=== PATIENT | female | born 1985 | race African-American/Black ===

== ENCOUNTER 2017-03-25 07:49 | Emergency (ER) | payer SELFPAY ==
[~2017-03-25] VITALS: Ht 160 cm; Wt 55.0 kg
[2017-03-25 07:57] VITALS: BP 136/100; PULSE 92; RESP 20; TEMP 98.1; O2SAT 98
[2017-03-25 08:11] VITALS: BP 165/96; PULSE 96; RESP 18; TEMP 98.6; O2SAT 100
[2017-03-25 08:42] VITALS: BP 189/85; PULSE 106; RESP 19; TEMP 98; O2SAT 100
[2017-03-25] MEDS ORDERED: SODIUM CHLOR 0.9% 1000 ML INJ 1,000 ML IV ONE (08:45)
--- NOTE | 2017-03-25 08:48 | PD ---
HPI Chief Complaint: Anxiety Time Seen by Provider: 08:43 Travel History International Travel<30 days: No Contact w/Intl Traveler<30days: No Traveled to known affect area: No History of Present Illness HPI Patient is a 31-year-old female who presents to emergency room for evaluation of anxiety reaction. Patient reports that she lost her job on Wednesday, and since then, she has been having palpitations. Reports "I am stressed and don't know what to do because I don't have a job now." Patient denies suicidal or homicidal ideations at this time. Denies any drug abuse. Patient requesting medication for her anxiety. Denies chest pain/sob. PFSH Past Medical History Medical History: Denies Significant Hx Tetanus Vaccination: > 5 Years Influenza Vaccination: No ?: Not LMP: now Past Surgical History Surgical History: No Previous Surgery Social History Alcohol Use: Yes Tobacco Use: No Substance Use: No Allergies-Medications (Allergen,Severity, Reaction): Coded Allergies: Motrin (Verified Allergy, Intermediate, HIVES, 03/25/17) Reported Meds & Prescriptions Reported Meds & Active Scripts Active No Active Prescriptions or Reported Medications Review of Systems General / Constitutional: No: Fever Eyes: No: Visual changes HENT: No: Headaches Cardiovascular: No: Chest Pain or Discomfort Respiratory: No: Shortness of Breath Gastrointestinal: No: Abdominal Pain Genitourinary: No: Dysuria Musculoskeletal: No: Pain Skin: No Rash Neurologic: No: Weakness Psychiatric: Positive: Anxiety, No: Depression, Suicidal Ideations, Homicidal Ideation Endocrine: No: Polydipsia Hematologic/Lymphatic: No: Easy Bruising Physical Exam Narrative GENERAL: mild distress SKIN: Focused skin assessment warm/dry. HEAD: Atraumatic. Normocephalic. EYES: Pupils equal and round. No scleral icterus. No injection or drainage. ENT: No nasal bleeding or discharge. Mucous membranes pink and moist. NECK: Trachea midline. No JVD. CARDIOVASCULAR: Regular rate and rhythm. No murmur appreciated. RESPIRATORY: No accessory muscle use. Clear to auscultation. Breath sounds equal bilaterally. GASTROINTESTINAL: Abdomen soft, non-tender, nondistended. Hepatic and splenic margins not palpable. MUSCULOSKELETAL: No obvious deformities. No clubbing. No cyanosis. No edema. NEUROLOGICAL: Awake and alert. No obvious cranial nerve deficits. Motor grossly within normal limits. Normal speech. PSYCHIATRIC: Anxious affect, denies si/hi Data Data Last Documented VS Vital Signs Date Time Temp Pulse Resp B/P Pulse Ox O2 Delivery O2 Flow Rate FiO2 03/25/17 08:42 98.0 106 19 189/85 100 Room Air Orders Complete Blood Count With Diff (03/25/17 08:43) Comprehensive Metabolic Panel (03/25/17 08:43) Thyroid Stimulating Hormone (03/25/17 08:43) Iv Access Insert/Monitor (03/25/17 08:43) Ecg Monitoring (03/25/17 08:43) Lorazepam Inj (Ativan Inj) (03/25/17 08:45) Drug Screen, Random Urine (03/25/17 08:43) Ed Urine Pregnancytest Poc (03/25/17 08:43) Sodium Chlor 0.9% 1000 Ml Inj (Ns 1000 M (03/25/17 08:45) Potassium Chloride (Kcl) (03/25/17 10:00) Labs Laboratory Tests Test 03/25/17 09:00 White Blood Count 6.6 TH/MM3 Red Blood Count 3.87 MIL/MM3 Hemoglobin 12.8 GM/DL Hematocrit 36.7 % Mean Corpuscular Volume 94.8 FL Mean Corpuscular Hemoglobin 33.0 PG Mean Corpuscular Hemoglobin 34.9 % Concent Red Cell Distribution Width 15.8 % Platelet Count 305 TH/MM3 Mean Platelet Volume 8.1 FL Neutrophils (%) (Auto) 67.5 % Lymphocytes (%) (Auto) 22.6 % Monocytes (%) (Auto) 8.9 % Eosinophils (%) (Auto) 0.1 % Basophils (%) (Auto) 0.9 % Neutrophils # (Auto) 4.5 TH/MM3 Lymphocytes # (Auto) 1.5 TH/MM3 Monocytes # (Auto) 0.6 TH/MM3 Eosinophils # (Auto) 0.0 TH/MM3 Basophils # (Auto) 0.1 TH/MM3 CBC Comment DIFF FINAL Differential Comment Sodium Level 132 MEQ/L Potassium Level 3.1 MEQ/L Chloride Level 97 MEQ/L Carbon Dioxide Level 23.8 MEQ/L Anion Gap 11 MEQ/L Blood Urea Nitrogen 12 MG/DL Creatinine 0.82 MG/DL Estimat Glomerular Filtration 100 ML/MIN Rate Random Glucose 101 MG/DL Calcium Level 8.9 MG/DL Total Bilirubin 0.8 MG/DL Aspartate Amino Transf 37 U/L (AST/SGOT) Alanine Aminotransferase 33 U/L (ALT/SGPT) Alkaline Phosphatase 60 U/L Total Protein 8.4 GM/DL Albumin 4.1 GM/DL Thyroid Stimulating Hormone 1.360 uIU/ML [address] [place] [address] Medical Decision Making Medical Screen Exam Complete: Yes Emergency Medical Condition: Yes Interpretation(s) Vital Signs Date Time Temp Pulse Resp B/P Pulse Ox O2 Delivery O2 Flow Rate FiO2 03/25/17 08:42 98.0 106 19 189/85 100 Room Air 03/25/17 08:42 106 19 03/25/17 08:11 98.6 96 18 165/96 100 Room Air 03/25/17 08:08 99 18 03/25/17 07:57 98.1 92 20 136/100 98 Differential Diagnosis Differential includes depression, anxiety reaction, hyperthyroidism Narrative Course 31-year-old female who presents to emergency with complaints of anxiety reaction. Patient reports that she lost her job and Wednesday, reports that she has been having anxiety attack since then. Patient requesting medication for anxiety. Patient anxious, does not want ativan. Basic labs ordered. Denies si/hi. Does not want to see psych screener Laboratory Tests Test 03/25/17 09:00 White Blood Count 6.6 TH/MM3 (4.0-11.0) Red Blood Count 3.87 MIL/MM3 (4.00-5.30) Hemoglobin 12.8 GM/DL (11.6-15.3) Hematocrit 36.7 % (35.0-46.0) Mean Corpuscular Volume 94.8 FL (80.0-100.0) Mean Corpuscular Hemoglobin 33.0 PG (27.0-34.0) Mean Corpuscular Hemoglobin 34.9 % Concent (32.0-36.0) Red Cell Distribution Width 15.8 % (11.6-17.2) Platelet Count 305 TH/MM3 (150-450) Mean Platelet Volume 8.1 FL (7.0-11.0) Neutrophils (%) (Auto) 67.5 % (16.0-70.0) Lymphocytes (%) (Auto) 22.6 % (9.0-44.0) Monocytes (%) (Auto) 8.9 % (0.0-8.0) Eosinophils (%) (Auto) 0.1 % (0.0-4.0) Basophils (%) (Auto) 0.9 % (0.0-2.0) Neutrophils # (Auto) 4.5 TH/MM3 (1.8-7.7) Lymphocytes # (Auto) 1.5 TH/MM3 (1.0-4.8) Monocytes # (Auto) 0.6 TH/MM3 (0-0.9) Eosinophils # (Auto) 0.0 TH/MM3 (0-0.4) Basophils # (Auto) 0.1 TH/MM3 (0-0.2) CBC Comment DIFF FINAL Differential Comment Sodium Level 132 MEQ/L (136-145) Potassium Level 3.1 MEQ/L (3.5-5.1) Chloride Level 97 MEQ/L (98-107) Carbon Dioxide Level 23.8 MEQ/L (21.0-32.0) Anion Gap 11 MEQ/L (5-15) Blood Urea Nitrogen 12 MG/DL (7-18) Creatinine 0.82 MG/DL (0.50-1.00) Estimat Glomerular Filtration 100 ML/MIN Rate (>89) Random Glucose 101 MG/DL (74-106) Calcium Level 8.9 MG/DL (8.5-10.1) Total Bilirubin 0.8 MG/DL (0.2-1.0) Aspartate Amino Transf 37 U/L (15-37) (AST/SGOT) Alanine Aminotransferase 33 U/L (10-53) (ALT/SGPT) Alkaline Phosphatase 60 U/L (45-117) Total Protein 8.4 GM/DL (6.4-8.2) Albumin 4.1 GM/DL (3.4-5.0) Thyroid Stimulating Hormone 1.360 uIU/ML 3rd Gen (0.358-3.740) Patient was reevaluated, patient is feeling much better at this time, patient reports improvement on her anxiety. Patient denies suicidal or homicidal ideations. Patient will follow-up with the primary care doctor and will return to emergency room as needed. I did review all labs and all studies with patient in detail including all findings. Diagnosis Primary Impression: Anxiety Additional Impression: Hypokalemia Patient Instructions: General Instructions Additional Instructions: Please follow up with your primary care doctor Return to ER as needed or if symptoms worsen or persist. Scripts No Active Prescriptions or Reported Meds Disposition: 01 DISCHARGE HOME Condition: Stable Charlotte Avalos DO Mar 25, 2017 08:48
[2017-03-25] MEDS: LORazepam 2 MG/ML VIAL IV ONE ×2 (09:04→09:44)
[2017-03-25 09:17] LABS: AUTOMATED NEUTROPHIL # 4.5 TH/MM3 (1.8-7.7); BASOPHIL # 0.1 TH/MM3 (0-0.2); BASOPHIL % 0.9 % (0.0-2.0); EOSINOPHIL % 0.1 % (0.0-4.0); HEMATOCRIT 36.7 % (35.0-46.0); LYMPH % 22.6 % (9.0-44.0); LYMPHOCYTE # 1.5 TH/MM3 (1.0-4.8); MEAN CELL VOLUME 94.8 FL (80.0-100.0); MEAN CORPUSCULAR HGB CONC 34.9 % (32.0-36.0); MONO % 8.9 % (0.0-8.0); NEUT % 67.5 % (16.0-70.0); PLATELET COUNT 305 TH/MM3 (150-450); RED BLOOD COUNT 3.87 MIL/MM3 (4.00-5.30); RED CELL DISTRIBUTION WIDTH 15.8 % (11.6-17.2); WHITE BLOOD COUNT 6.6 TH/MM3 (4.0-11.0)
[2017-03-25 09:18] LABS: HEMO FLAGS DIFF FINAL
[2017-03-25 09:37] LABS: ALT (GPT) 33 U/L (10-53)
[2017-03-25 09:42] LABS: ANION GAP 11 MEQ/L (5-15); AST (GOT) 37 U/L (15-37); BICARBONATE 23.8 MEQ/L (21.0-32.0); BLOOD UREA NITROGEN 12 MG/DL (7-18); CHLORIDE 97 MEQ/L (98-107); GLOMERULAR FILTRATION RATE 100 ML/MIN (>89); POTASSIUM 3.1 MEQ/L (3.5-5.1); SODIUM (NA) 132 MEQ/L (136-145)
[2017-03-25 09:46] LABS: ALKALINE PHOSPHATASE 60 U/L (45-117); TOTAL BILIRUBIN ADULT 0.8 MG/DL (0.2-1.0)
[2017-03-25] MEDS ORDERED: POTASSIUM CHLORIDE 10 MEQ CONTROLLED RELEASE TAB PO ONE (10:00)
[2017-03-25 10:38] VITALS: BP 150/92
== END 2017-03-25 10:40 | disposition home or self-care (01) ==
LOC: NEPC 07:49
DX: F41.9 Anxiety disorder, unspecified (principal); E87.6 Hypokalemia
CPT/HCPCS: 80053; 80307; 84443; 84703; 85025; 96361; 96374; 99284; J2060; J7030